=== PATIENT | male | born 1980 | race Caucasian/White ===

== ENCOUNTER → 2021-04-02 15:54 | Outpatient (CLI) | payer OTHER, SELFPAY ==
--- NOTE | 2021-04-02 16:13 | ECG_ITS ---
APPROVED REPORT Exam: Resting ECG HR:95 bpm ECG Measurements Heart Rate 95 AXES MS 146 P 62 QRSd 94 QRS 1 QT 350 T 72 QTc 439 Conclusion Normal sinus rhythm Incomplete RBBB Otherwise a normal ECG Electronically signed by : Popeye Leahy MD 04/14/2021 10:44:37
== END ==
LOC: LAB 15:57 → RT 16:00
PROVIDERS: Visit Provider Internal Medicine
DX: R07.9 Chest pain, unspecified (principal); I10 Essential (primary) hypertension
CPT/HCPCS: 93005